=== PATIENT | male | born 1975 | race Caucasian/White ===

== ENCOUNTER 2022-05-21 15:50 | Emergency (ER) | payer OTHER ==
[~2022-05-21] VITALS: Ht 177.8 cm; Wt 95.3 kg
[2022-05-21 16:24] LABS: HEMATOCRIT 44.7 % (36.7-47.1); MEAN CORPUSCULAR HEMOGLOBIN 28.4 uug (23.8-33.4); MEAN CORPUSCULAR VOLUME 85.5 fL (73.0-96.2); PLATELET COUNT (AUTO) 210 K/uL (152-348)
[2022-05-21 16:43] LABS: CARBON DIOXIDE 28 mmol/L (21-32); CHLORIDE 105 mmol/L (98-107); GLUCOSE 112 mg/dL (74-106); POTASSIUM 4.2 mmol/L (3.5-5.1); UREA NITROGEN, BLOOD 15 mg/dL (7-18)
--- NOTE | 2022-05-21 16:45 | NUR ---
Pt resting in gurney with NAD noted, disposition pending. BP 109/67, HR 70 (SR), RR 18, PULSE OX 97% (RA), states no pain at this time.
--- NOTE | 2022-05-21 17:35 | NUR ---
Patient discharged to home in stable condition. Written and verbal after care instructions given. Patient verbalizes understanding of instructions. Stressed follow up or return to ER for worsening s/s.
--- NOTE | 2022-05-21 17:35 | NUR ---
IV removed. Catheter intact and site benign. Pressure and 4x4 gauze applied to site. No bleeding noted.
== END 2022-05-21 17:36 | disposition home or self-care (01) ==
LOC: ER 15:50
DX: R07.9 Chest pain, unspecified (principal); Z88.6 Allergy status to analgesic agent; R53.83 Other fatigue
CPT/HCPCS: 36415; 71045; 84484; 85025; 93005; A4663

== ENCOUNTER 2022-11-26 18:16 | Emergency (ER) | payer OTHER ==
[~2022-11-26] VITALS: Ht 167.6 cm; Wt 93.0 kg
[2022-11-26 21:18] VITALS: BP 115/82; TEMP 98.4; O2SAT 98
== END 2022-11-26 21:18 | disposition home or self-care (01) ==
LOC: ER 18:19
DX: R60.0 Localized edema (principal); Z88.6 Allergy status to analgesic agent
CPT/HCPCS: A4663